=== PATIENT | female | born 1955 | race Caucasian/White ===

== ENCOUNTER 2017-06-28 15:00 | Outpatient (CLI) | payer OTHER | END 2017-06-28 15:01 | disposition home or self-care (01) | LOC: BICMAMMO 15:00 | PROVIDERS: ATTEND Family Medicine | DX: Z12.31 Encounter for screening mammogram for malignant neoplasm of breast (principal); Z80.3 Family history of malignant neoplasm of breast | CPT/HCPCS: 77067 ==

== ENCOUNTER 2017-07-19 14:38 | Outpatient (CLI) | payer OTHER | END 2017-07-19 14:39 | disposition home or self-care (01) | LOC: BICMAMMO 14:38 | PROVIDERS: ATTEND Family Medicine | DX: N64.89 Other specified disorders of breast (principal); Z80.3 Family history of malignant neoplasm of breast; Z85.820 Personal history of malignant melanoma of skin | CPT/HCPCS: G0279 ==

== ENCOUNTER 2018-08-27 13:42 | Outpatient (CLI) | payer OTHER ==
--- NOTE | 2018-08-27 15:28 | MMO ---
Bilateral MAMMO Bilat Screen [facility]. CLINICAL HISTORY: Patient is 62 years old and is seen for screening. The patient has the following family history of breast cancer: maternal aunt. The patient has a history of melanoma at age 57. VIEWS: The views performed were: bilateral craniocaudal with tomosynthesis and bilateral mediolateral oblique with tomosynthesis. FILMS COMPARED: The present examination has been compared to prior imaging studies performed at [facility] on 06/28/2017 and 07/19/2017. MAMMOGRAM FINDINGS: The breasts are heterogeneously dense, which could obscure a lesion on mammography. There are stable benign appearing calcifications seen in both breasts. There are no suspicious masses, suspicious calcifications, or new areas of architectural distortion. IMPRESSION: THERE IS NO MAMMOGRAPHIC EVIDENCE OF MALIGNANCY. A ROUTINE FOLLOW-UP MAMMOGRAM IN 1 YEAR IS RECOMMENDED. THE RESULTS OF THIS EXAM WERE SENT TO THE PATIENT. ACR BI-RADS Category 2 - Benign finding MAMMOGRAPHY NOTE: 1. A negative mammogram report should not delay a biopsy if a dominant of clinically suspicious mass is present. 2. Approximately 10% to 15% of breast cancers are not detected by mammography. 3. Adenosis and dense breasts may obscure an underlying neoplasm.
== END 2018-08-27 13:43 | disposition home or self-care (01) ==
LOC: BICMAMMO 13:42
PROVIDERS: ATTEND Family Medicine
DX: Z12.31 Encounter for screening mammogram for malignant neoplasm of breast (principal)
CPT/HCPCS: 77063; 77067

== ENCOUNTER 2020-11-09 11:00 | Outpatient (CLI) | payer MEDICARE, OTHER | END 2020-11-09 11:01 | disposition home or self-care (01) | LOC: BICMAMMO 11:00 | PROVIDERS: ATTEND Family Medicine | DX: Z12.31 Encounter for screening mammogram for malignant neoplasm of breast (principal); Z80.3 Family history of malignant neoplasm of breast; Z85.820 Personal history of malignant melanoma of skin | CPT/HCPCS: 77063; 77067 ==

== ENCOUNTER 2021-12-01 11:17 | Outpatient (CLI) | payer MEDICARE | END 2021-12-01 11:18 | disposition home or self-care (01) | LOC: BICMAMMO 11:17 | PROVIDERS: ATTEND Family Medicine | DX: Z12.31 Encounter for screening mammogram for malignant neoplasm of breast (principal); Z85.820 Personal history of malignant melanoma of skin; Z80.3 Family history of malignant neoplasm of breast | CPT/HCPCS: 77063; 77067 ==

== ENCOUNTER 2022-01-24 12:29 | Outpatient (CLI) | payer MEDICARE | END 2022-01-24 12:30 | disposition home or self-care (01) | LOC: MRI 12:29 | PROVIDERS: ATTEND Neurological Surgery | DX: M51.16 Intervertebral disc disorders with radiculopathy, lumbar region (principal) | CPT/HCPCS: 72120 ==

== ENCOUNTER 2022-03-14 12:27 | Outpatient (CLI) | payer MEDICARE | END 2022-03-14 12:28 | disposition home or self-care (01) | LOC: TBSIIMAG 12:27 | PROVIDERS: ATTEND Neurological Surgery | DX: M51.16 Intervertebral disc disorders with radiculopathy, lumbar region (principal); M48.061 Spinal stenosis, lumbar region without neurogenic claudication; Q05.7 Lumbar spina bifida without hydrocephalus | CPT/HCPCS: 72148 ==